=== PATIENT | male | born 1935 | race Caucasian/White ===

== ENCOUNTER 2017-11-20 01:06 | Inpatient (IN) | payer MEDICARE ==
[2017-11-20 02:03] LABS: #Eosinphils 0.1 thou/uL (0.0-0.7); #Lymphocytes 0.9 thou/uL (1.20-3.40); #Monocytes 0.5 thou/uL (0.11-0.59); #Neutrophils 7.5 thou/uL (1.40-6.50); %Basophils 0.3 % (0.0-1.0); %Eosinophils 1.2 % (0.0-10.0); %Lymphocytes 10.2 % (21.0-51.0); %Monocytes 5.2 % (0.0-10.0); %Neutrophils 83.2 % (42.0-75.0); Hemoglobin 12.1 g/dL (14.0-18.0); Mean Corpuscular HGB CONC 35.1 g/dL (32.0-36.0); Mean Corpuscular Hemoglobin 33.7 pg (27.0-31.0); Mean Corpuscular Volume 95.9 fL (78.0-98.0); Mean Platelet Volume 8.2 fL (7.4-10.4); Platelet Count 163 thou/uL (130-400); RBC Distribution Width 12.3 % (11.5-14.5); Red Blood Cell (RBC) Count 3.58 mill/uL (4.70-6.10)
[2017-11-20 02:21] LABS: INR-International Normal Ratio 1.3; PTT 37.4 SEC (22.9-36.1); Prothrombin Time 15.8 SEC (12.0-14.7)
[2017-11-20 02:24] LABS: Anion Gap 13 mmol/L (10-20); BUN (Urea Nitrogen) 35 mg/dL (8.4-25.7); CK (CPK) 139 U/L (30-200); Calc. Creatinine Clearance 0 mL/min (70-130); Calcium 9.4 mg/dL (7.8-10.44); Carbon Dioxide 22 mmol/L (23-31); Chloride 109 mmol/L (98-107); Estimated GFR-MDRD 46; Glucose 148 mg/dL (83-110); Potassium 4.7 mmol/L (3.5-5.1); Sodium 139 mmol/L (136-145)
[2017-11-20 02:28] LABS: Troponin I 0.043 ng/mL (< 0.028)
[2017-11-20] MEDS ORDERED: Acetaminophen 325 MG TAB PO PRN (07:18)
[2017-11-20] MEDS ORDERED: hydrALAZINE 20 MG/ML VIAL SLOW IVP PRN (07:18)
[2017-11-20] MEDS ORDERED: Bisacodyl 5 MG TAB PO PRN (07:18)
[2017-11-20] MEDS ORDERED: Dextrose 5% in Water 1,000 ML IV PRN (07:22)
[2017-11-20] MEDS ORDERED: HumaLOG 300 UNITS/3 ML VIAL SC PRN (07:22)
[2017-11-20] MEDS ORDERED: Dextrose 50% Abboject 50 ML SYRINGE SLOW IVP PRN (07:22)
[2017-11-20] MEDS ORDERED: metFORMIN 500 MG TAB PO SCH (08:30)
[2017-11-20] MEDS ORDERED: Insulin Glargine 30 UNITS in Pre-Filled Syringe 1 EACH SC SCH (08:30)
[2017-11-20] MEDS ORDERED: Amlodipine 10 MG TAB PO SCH (08:30)
[2017-11-20] MEDS ORDERED: Lisinopril 20 MG TAB PO SCH (08:30)
[2017-11-20] MEDS ORDERED: Atorvastatin Calcium 10 MG TAB PO SCH (08:30)
[2017-11-20] MEDS ORDERED: Apixaban 5 MG TAB PO SCH (08:30)
[2017-11-20] MEDS ORDERED: Magnesium Citrate 300 ML BOT PO ONE (09:30)
--- NOTE | 2017-11-20 11:04 | HP ---
PRIMARY CARE PROVIDER: Juan Luis Gonzalez M.D. CHIEF COMPLAINT: Slurred speech. HISTORY OF PRESENT ILLNESS: Mr. Palomares is a pleasant 81-year-old gentleman who was seen at [facility] on 11/20/2017 following transfer from [place]. He reportedly went to bed around 2100 hours yesterday. He woke up at 2230 hours yesterday. He tried talking to his . His found that his speech was slurred. She also reports that she could n ot understand what he was saying. Currently, Mr. Palomares denies any chest pain, shortness of breath, fevers or chills. He denies any we akness in his body. He also reportedly had drooling when he had slurred speech. REVIEW OF SYSTEMS: All other systems reviewed and found to be negative. PAST MEDICAL HISTORY: Coronary artery disease status post coronary artery bypass graft, diabetes melquiades litus type 2 insulin-dependent, hypertension, paroxysmal atrial fibrillation, status post MAZE proced ure, diabetic neuropathy, severe aortic valve stenosis, status post TAVR. PAST SURGICAL HISTORY: Coronary artery bypass graft, cholecystectomy, tonsillectomy, adenoidectomy, skin graft of diabetic foot ulcer, transcatheter aortic valve replacement, MAZE procedure. SOCIAL HISTORY: The patient denies any tobacco use, alcohol use or recreational drug use. FAMILY HISTORY: Father with bladder cancer, mother with metastatic colon cancer. CODE STATUS: I discussed his code status. He is FULL CODE. ALLERGIES: CEFUROXIME, CLARITHROMYCIN, LEVAQUIN, and SULFA. CURRENT MEDICATIONS: Coenzyme Q10 1000 mg daily, Levemir 30 units in the morning and 10 units in the evening, Lipitor 10 mg daily, metformin 500 mg 2 times a day, aspirin 81 mg daily, lisinopril 40 mg daily, amlodipine 10 mg daily and Eliquis 5 mg 2 times a day. PHYSICAL EXAMINATION: GENERAL: On examination, Mr. Palomares is awake and alert, not in acute distress. VITAL SIGNS: Blood pressure is 188/67, pulse 60, respiratory rate 20, and oxygen saturation 94% on 2 liters of oxygen. He is afebrile. EYES: No scleral icterus. No conjunctival pallor. ENT: Moist mucosal membranes, no oropharyngeal erythema or exudates. NECK: Supple, nontender, normal range of movement, trachea is midline. RESPIRATORY: Accessory muscles of breathing are not active. Chest wall movements are symmetric bila terally. LUNGS: Clear to auscultation without wheeze, rhonchi or crepitations. CARDIOVASCULAR: S1 and S2 are heard, irregular. Peripheral pulses palpable. No pericardial rub, no carotid bruit. ABDOMEN: Soft and nontender, bowel sounds are heard, no hepatomegaly, no splenomegaly. NEUROLOGIC: He has left-sided facial droop. Tongue deviates to the left. Speech is slightly slurre d. Otherwise, cranial nerves II-XII intact. No focal motor or sensory deficits. Deep tendon reflex es 2+, plantar reflexes downgoing bilaterally. MUSCULOSKELETAL: Power is 5/5 in all 4 extremities. He has bilateral lower extremity edema. SKIN: He has dry skin, bilateral lower extremity edema. LYMPHATIC: No cervical lymphadenopathy. PSYCHIATRIC: Normal mood, normal affect, patient is oriented to person, place, and time. IMAGING DATA AND LABORATORY DATA: Mr. Palomares labs and investigations were reviewed. I reviewed his electrocardiogram, which shows atrial fibrillation with controlled ventricular response, no ST change s to suggest an acute coronary syndrome. I also reviewed noncontrast CT scan of brain, which does no t show any acute intracranial process. He also had CT angiogram of the head and neck, report is pend ing. He has normal white count, normocytic anemia with hemoglobin 12.1, normal platelet count, INR 1 .3, normal sodium, normal potassium, carbon dioxide slightly decreased at 22, elevated blood urea nit rogen of 35, elevated creatinine of 1.46, last known creatinine 1.59 on 11/19/2017 and indeterminate troponin I of 0.043. ASSESSMENT AND PLAN: Mr. Barber is a pleasant 81-year-old gentleman who was seen at [facility] on 11/20/2017. His problem list includes: 1. Slurred speech: Differential diagnosis includes dysarthria secondary to motor problems versus ce rebrovascular accident. We will check MRI of the brain to rule out cerebrovascular accident. We cheryl l also check 2D echocardiogram to rule out any intracardiac thrombi. 2. Chronic kidney disease: Appears stable. 3. Diabetes mellitus type 2: Start Accu-Cheks, insulin sliding scale. 4. Dyslipidemia: Continue statin. 5. Hypertension: Resume home medications, monitor vital signs and titrate antihypertensives as need ed. 6. Coronary artery disease: Patient denies any chest pain. We will recheck his troponin level. Hi s currently indeterminate troponin level is likely secondary to chronic kidney disease. Many thanks for allowing me to participate in your patient's care. Please feel free to contact me wi th any questions or concerns. LEVEL OF RISK: High. LEVEL OF COMPLEXITY: High.
[2017-11-20 12:59] VITALS: BMI 32.1
[2017-11-20] MEDS ORDERED: Lorazepam 0.5 MG TAB PO SCH (13:00)
[2017-11-20] MEDS ORDERED: Furosemide 20 MG TAB PO SCH (13:30)
[2017-11-20] MEDS ORDERED: Aspirin 81 mg Enteric Coated Tablet PO SCH ×2 (13:30)
--- NOTE | 2017-11-20 15:09 | MRI ---
NONCONTRAST BRAIN MRI: Date: 11/20/17 CLINICAL INDICATION: Stroke, new onset weakness with slurred speech. FINDINGS: There is restricted diffusion involving the posterior right frontal lobe, within the right MCA distri bution. No mass effect or midline shift. There is parenchymal atrophy with compensatory dilatation of the ventricular system. No intracranial hemorrhage is seen. Blood artifact from pineal calcification s is present. There is mild chronic microvascular ischemic disease. The skull base flow-voids are lovett ited by the degree of patient motion. [place] intraocular lenses are absent. There is punctate increased signal by DWI parameters at the right occipital region, which could be ar tifactual versus tiny areas of cortical restriction, too small to definitively characterize. 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 No as sociated mass effect or midline shift. No significant evidence for intracranial hemorrhagic susceptib ility. Recommend neurology consultation for further care. POS: TORY
[2017-11-20] MEDS: metFORMIN 500 MG TAB PO SCH (16:56)
[2017-11-20] MEDS: Aspirin 81 mg Enteric Coated Tablet PO SCH (20:18)
[2017-11-20] MEDS: Fish Oil 1,000 MG CAP PO SCH (20:18)
[2017-11-20] MEDS: Apixaban 2.5 MG TAB PO SCH (20:18)
[2017-11-20] MEDS ORDERED: Non-Formulary Item 1 EACH (Levemir Flexpen [Levemir Flexpen] 10 UNIT) SC SCH (21:00)
[2017-11-20] MEDS ORDERED: Non-Formulary Item 1 EACH (Apixaban [Eliquis] 2.5 MG) PO SCH (21:00)
[2017-11-20] MEDS ORDERED: Insulin Glargine 10 UNITS in Pre-Filled Syringe 1 EACH SC SCH (21:00)
--- NOTE | 2017-11-20 21:24 | CON ---
DATE OF CONSULTATION: 11/20/2017 CONSULTING PHYSICIAN: Hospitalist. IMPRESSION: Small area of ischemia in the right parietal lobe despite maximum medical therapy. PLAN: 1. Carotid ultrasound. 2. Continue current medications. Mr. Palomares is an 81-year-old gentleman with a past history of cardiac valvular disease, atrial fibril lation, hyperlipidemia, hypertension who presented with complaints of some slurred speech and left fa cial drooping. He was noted by his to have these changes just prior to admission. Initial work up did not show any ischemic changes. Laboratory work was all unremarkable. MRI of the brain reveals an acute area of ischemic injury in t he right parietal region. His symptoms have improved. PAST MEDICAL HISTORY: CAD, diabetes, hypertension, aortic stenosis, atrial fibrillation. SOCIAL HISTORY: No tobacco or alcohol use. FAMILY HISTORY: Noncontributory. ALLERGIES: CEFUROXIME, CLARITHROMYCIN, SULFA, LEVAQUIN. REVIEW OF SYSTEMS: No complaint of headache, nausea, vomiting, vertigo, chest pain, shortness of atif ath. PHYSICAL EXAMINATION: GENERAL: He is a well-nourished elderly man sitting up in bed in no distress. VITAL SIGNS: Stable. He is afebrile. HEENT: Pupils equal and reactive. Conjunctivae clear. Oropharynx clear. NECK: Supple, no lymphadenopathy noted. EXTREMITIES: No cyanosis. NEUROLOGIC: He is alert and oriented. His speech was subtly dysarthric. Cranial nerve exam showed some subtle left nasolabial fold flattening. Motor exam showed equal alumni relations coordinator strength. There is some d istal sensory loss in the feet consistent with peripheral neuropathy, can walk with some minimal assi stance. No tremor dysmetrias present. No abnormal movements were seen. CTA of the carotids was unremarkable. SUMMARY: This is an elderly man on maximum medical therapy with aspirin and Eliquis, who suffered a small stroke. He seems to be doing well at this point and can likely be discharged home shortly.
[2017-11-21 05:02] LABS: #Eosinphils 0.2 thou/uL (0.0-0.7); #Monocytes 0.6 thou/uL (0.11-0.59); #Neutrophils 5.3 thou/uL (1.40-6.50); %Basophils 0.5 % (0.0-1.0); %Eosinophils 2.9 % (0.0-10.0); %Lymphocytes 13.7 % (21.0-51.0); %Monocytes 8.7 % (0.0-10.0); %Neutrophils 74.2 % (42.0-75.0); Hemoglobin 10.3 g/dL (14.0-18.0); Mean Corpuscular Hemoglobin 32.7 pg (27.0-31.0); Mean Corpuscular Volume 96.1 fL (78.0-98.0); Mean Platelet Volume 8.1 fL (7.4-10.4); Platelet Count 165 thou/uL (130-400); RBC Distribution Width 12.1 % (11.5-14.5); Red Blood Cell (RBC) Count 3.16 mill/uL (4.70-6.10); White Blood Cell (WBC) Count 7.1 thou/uL (4.8-10.8)
[2017-11-21 05:03] LABS: Anion Gap 11 mmol/L (10-20); BUN (Urea Nitrogen) 26 mg/dL (8.4-25.7); Calc. Creatinine Clearance 70 mL/min (70-130); Calcium 8.9 mg/dL (7.8-10.44); Carbon Dioxide 23 mmol/L (23-31); Cardiac Risk 3.6 (Less than 4.5); Chloride 110 mmol/L (98-107); Cholesterol 104 mg/dl (< 200 Desired); Estimated GFR-MDRD 52; Glucose 118 mg/dL (83-110); HDL Cholesterol 29 mg/dL (>60 Neg Risk); LDL Cholesterol, Calculated 60 mg/dL; Potassium 4.7 mmol/L (3.5-5.1); Sodium 139 mmol/L (136-145); Triglycerides 77 mg/dL (Less than 150)
[2017-11-21] MEDS ORDERED: MILK THISTLE PO SCH (09:00)
[2017-11-21] MEDS ORDERED: Non-Formulary Item 1 EACH (Levemir Flexpen [Levemir Flexpen] 30 UNIT) SC SCH (09:00)
[2017-11-21] MEDS ORDERED: CHOLECALCIFEROL PO SCH (09:00)
[2017-11-21] MEDS ORDERED: UBIDECARENONE PO SCH (09:00)
[2017-11-21] MEDS ORDERED: Aspirin 81 mg Enteric Coated Tablet PO SCH (09:00)
[2017-11-21] MEDS ORDERED: [UNRECOGNIZED DRUG - MIXTURE] PO SCH (09:00)
[2017-11-21] MEDS ORDERED: MAGNESIUM PO SCH (09:00)
[2017-11-21] MEDS ORDERED: COENZYME Q10 PO SCH (09:00)
[2017-11-21] MEDS ORDERED: Non-Formulary Item 1 EACH (Lisinopril [Lisinopril] 40 MG) PO SCH (09:00)
[2017-11-21] MEDS ORDERED: Non-Formulary Item 1 EACH (Cyanocobalamin (Vitamin B-12) [Vitamin B-12] 500 MCG) PO SCH (09:00)
[2017-11-21] MEDS: Lisinopril 20 MG TAB PO SCH (09:41)
[2017-11-21] MEDS: Amlodipine 10 MG TAB PO SCH (09:42)
[2017-11-21] MEDS: metFORMIN 500 MG TAB PO SCH ×2 (09:43→16:01)
[2017-11-21] MEDS: Atorvastatin Calcium 20 MG TAB PO SCH (09:43)
[2017-11-21] MEDS: Cyanocobalamin (Vitamin B-12) 1,000 MCG TAB PO SCH (09:44)
[2017-11-21] MEDS: Fish Oil 1,000 MG CAP PO SCH ×2 (09:45→20:41)
[2017-11-21] MEDS: Magnesium Oxide 400 MG TAB PO SCH (09:46)
[2017-11-21] MEDS: Multivitamin W/ Minerals 1 TAB PO SCH (09:46)
[2017-11-21] MEDS: Insulin Glargine 30 UNITS in Pre-Filled Syringe 1 EACH SC SCH (09:47)
[2017-11-21] MEDS: Apixaban 2.5 MG TAB PO SCH (09:48)
--- NOTE | 2017-11-21 14:03 | CON ---
DATE OF CONSULTATION: 11/21/2017 REASON FOR CONSULTATION: Stroke, bradycardia. HISTORY OF PRESENT ILLNESS: Mr. Karlo Palomares is a very pleasant 81-year-old man. The patient has a hi story of transcutaneous aortic valve replacement and chronic atrial fibrillation. He was recently se en in the office doing well. He did have some asymptomatic bradycardia. The patient was admitted to the hospital yesterday with slurred speech. The patient did not have numbness or weakness, just the slurred speech. He did not have chest pain, pressure, heaviness or squeezing. He was admitted to the hospital and ev aluated as will be outlined below. REVIEW OF SYSTEMS: CONSTITUTIONAL: No significant weight gain or loss. VISION: No changes. HEARING: No changes. PULMONARY: No cough or wheezing. GASTROINTESTINAL: No nausea, vomiting, diarrhea. SKIN: No rashes. PAST MEDICAL HISTORY: 1. Previous transcutaneous aortic valve replacement. 2. Previous bypass surgery. SOCIAL HISTORY: No alcohol or tobacco. FAMILY HISTORY: Father with bladder cancer. CODE STATUS: Full. ALLERGIES: LEVAQUIN and SULFA. MEDICATIONS PRIOR TO ADMISSION: 1. Eliquis 5 mg twice a day. 2. Metformin 500 mg twice daily. 3. Aspirin 81 mg daily. 4. Levemir insulin. PHYSICAL EXAMINATION: GENERAL: This is a pleasant elderly gentleman in no distress. VITAL SIGNS: Blood pressure is 168/65, pulse is in the 40s. LUNGS: Clear. CARDIAC: Irregularly irregular. There is a 2/6 systolic murmur, crescendo decrescendo, loudest at t he left upper sternal border. No diastolic murmur, no S3. ABDOMEN: Soft, nontender. EXTREMITIES: No clubbing or cyanosis. There is moderate edema. SKIN: Warm and dry. PSYCHIATRIC: Mood and affect normal. NEUROLOGIC: He has slurred speech. PERTINENT LABORATORY AND X-RAY FINDINGS: BNP 689, creatinine is 1.32. CT angiography; right internal carotid artery, no significant findings. The left internal carotid ar jae, no significant findings. Brain MRI revealed right middle cerebral artery territory infarct. ASSESSMENT: 1. Chronic atrial fibrillation. 2. Previous transcutaneous aortic valve replacement. 3. Bradycardia. Heart rates in the 40s, he is having multiple 3 second pauses 3.45 second pauses, a lthough most be some when he sleeps. PLAN: Electrophysiologic consultation. Would need to interrupt anticoagulation at least briefly for pacemaker insertion. We will consult Dr. Mejia.
--- NOTE | 2017-11-21 14:16 | PDOC.PN ---
- Subjective Encounter Start Date: 11/21/17 Encounter Start Time: 07:00 Pt seen for followup re: ischemic stroke. Denies chest pain, shortness of breath, fevers or chills. - Objective MAR Reviewed: Yes Vital Signs & Weight: Vital Signs (12 hours) Temp Pulse Pulse Pulse Resp BP BP 11/21/17 11:00 97.8 F 60 16 11/21/17 09:56 59 L 11/21/17 09:51 99.2 F 59 L 12 11/21/17 09:42 59 L 11/21/17 09:41 194/80 H 11/21/17 07:50 42 L 59 L 161/64 H 11/21/17 07:20 99.2 F 46 L 12 11/21/17 04:00 97.9 F 53 L 16 BP BP Pulse Ox 11/21/17 11:00 168/65 H 97 11/21/17 09:56 190/80 H 11/21/17 09:51 95 11/21/17 09:42 11/21/17 09:41 11/21/17 07:50 194/80 H 11/21/17 07:20 164/73 H 95 11/21/17 04:00 143/72 H 95 Weight Weight 257 lb I&O: 11/20/17 11/21/17 11/22/17 06:59 06:59 06:59 Intake Total 800 Output Total 145 Balance 655 Result Diagrams: 11/21/17 04:27 11/21/17 04:27 Additional Labs: Accuchecks 11/21/17 11/21/17 11/21/17 05:50 02:50 02:14 POC Glucose 114 H 95 63 L 11/20/17 11/20/17 11/20/17 21:06 17:00 14:51 POC Glucose 106 121 H 138 H EKG Reviewed by me: Yes (Tele: hardeep bruce, pauses) Phys Exam - Physical Examination Obese HEENT: moist MMs, sclera anicteric, oral pharynx no lesions, 2+ tonsils Neck: no nodes, no JVD, supple, full ROM Respiratory: no wheezing, no rales, no rhonchi, clear to auscultation bilateral Cardiovascular: no rub, irregular S1, S2 Gastrointestinal: soft, non-tender, no distention, positive bowel sounds Musculoskeletal: edema present Neurological: moves all 4 limbs Psychiatric: normal affect, A&O x 3 Dx/Plan (1) Ischemic stroke Code(s): I63.9 - CEREBRAL INFARCTION, UNSPECIFIED Status: Acute Comment: continue aspirin and statin (2) Bradycardia Code(s): R00.1 - BRADYCARDIA, UNSPECIFIED Status: Acute Comment: await cardiology input (3) CKD (chronic kidney disease) Code(s): N18.9 - CHRONIC KIDNEY DISEASE, UNSPECIFIED Status: Chronic Qualifiers: Chronic kidney disease stage: stage 3 (moderate) Qualified Code(s): N18.3 - Chronic kidney disease, stage 3 (moderate) Comment: stable (4) DM2 (diabetes mellitus, type 2) Status: Chronic Comment: pt had episode of hypoglycemia, decrease nighttime dose of lantus to 5 units (5) Dyslipidemia Code(s): E78.5 - HYPERLIPIDEMIA, UNSPECIFIED Status: Chronic Comment: continue statin (6) Chronic a-fib Code(s): I48.2 - CHRONIC ATRIAL FIBRILLATION Status: Chronic Comment: on anticoagulation - Plan * . Review of Systems - Review of Systems Constitutional: negative: fever, chills, sweats, weakness, malaise Respiratory: negative: Cough, Shortness of Breath, SOB with Excertion, Pleuritic Pain, Wheezing Cardiovascular: negative: chest pain, palpitations, orthopnea, paroxysmal nocturnal dyspnea, edema, light headedness Gastrointestinal: negative: Nausea, Vomiting, Abdominal Pain, Diarrhea, Constipation, Melena, Hematochezia Genitourinary: negative: Dysuria, Frequency, Incontinence, Hematuria, Retention Skin: negative: Rash, Lesions, Xavier, Bruising - Medications/Allergies Allergies/Adverse Reactions: Allergies Allergy/AdvReac Type Severity Reaction Status Date / Time cefuroxime AdvReac Stomach Verified 11/20/17 12:26 Ache clarithromycin AdvReac Stomach Verified 11/20/17 12:26 Ache sulfamethoxazole AdvReac Stomach Verified 11/20/17 12:26 [From Bactrim] Ache trimethoprim [From Bactrim] AdvReac Stomach Verified 11/20/17 12:26 Ache Medications: Current Medications Acetaminophen (Tylenol) 650 mg PO Q4H PRN PRN Reason: Headache/Fever or Pain Amlodipine Besylate (Norvasc) 10 mg PO DAILY [facility] Last Admin: 11/21/17 09:42 Dose: 10 mg Aspirin (Ecotrin) 81 mg PO HS [facility] Last Admin: 11/20/17 20:18 Dose: 81 mg Atorvastatin Calcium (Lipitor) 20 mg PO DAILY [facility] Last Admin: 11/21/17 09:43 Dose: 20 mg Bisacodyl (Dulcolax) 10 mg PO DAILYPRN PRN PRN Reason: Constipation Cholecalciferol (Vitamin D3) [facility] Admin: 11/21/17 09:45 Dose: 2,000 units Cyanocobalamin (Vitamin B-12) 500 mcg PO QAM [facility] Last Admin: 11/21/17 09:44 Dose: 500 mcg Dextrose/Water (Dextrose 50%) 25 gm SLOW IVP PRN PRN PRN Reason: Hypoglycemia Enoxaparin Sodium (Lovenox) 100 mg SC 09,2099 [facility] Fish Oil (Fish Oil) 1,000 mg PO BID [facility] Last Admin: 11/21/17 09:45 Dose: 1,000 mg Furosemide (Lasix) 20 mg PO ASDIR [facility] Glucagon (Glucagon) 1 mg IM PRN PRN PRN Reason: Hypoglycemia Hydralazine HCl (Apresoline) 10 mg SLOW IVP Q4H PRN PRN Reason: BP > 220/110 Dextrose/Water (D5w) 1,000 mls @ 0 mls/hr IV .Q0M PRN; As Directed PRN Reason: Hypoglycemia Insulin Glargine 30 units/ (Miscellaneous Medication) 0.3 mls @ 0 mls/hr SC [facility] Last Admin: 11/21/17 09:47 Dose: 0.3 mls Insulin Glargine 5 units/ (Miscellaneous Medication) 0.05 mls @ 0 mls/hr SC [facility] Insulin Human Lispro (Humalog) 0 units SC .MILD SLIDING SCALE PRN PRN Reason: Mild Correctional Scale Last Admin: 11/21/17 11:46 Dose: 2 unit Iron/Minerals/Multivitamins (Theragran M) 1 tab PO DAILY [facility] Last Admin: 11/21/17 09:46 Dose: 1 tab Lisinopril (Zestril) 40 mg PO DAILY [facility] Last Admin: 11/21/17 09:41 Dose: 40 mg Lorazepam (Ativan) 0.5 mg PO WILLCALL [facility] Magnesium Oxide (Magnesium Oxide) 400 mg PO DAILY [facility] Last Admin: 11/21/17 09:46 Dose: 400 mg Metformin HCl (Glucophage) 500 mg PO BID-AC [facility] Last Admin: 11/21/17 09:43 Dose: 500 mg Sodium Chloride (Flush - Normal Saline) 10 ml IVF Q12HR [facility] Last Admin: 11/21/17 09:47 Dose: 10 ml Sodium Chloride (Flush - Normal Saline) 10 ml IVF PRN PRN PRN Reason: Saline Flush
[2017-11-21] MEDS: Aspirin 81 mg Enteric Coated Tablet PO SCH (20:41)
[2017-11-21] MEDS: Enoxaparin Sodium 100 MG/ML SYRINGE SC SCH (20:41)
[2017-11-21] MEDS: Insulin Glargine 5 UNITS in Pre-Filled Syringe 1 EACH SC SCH (20:42)
[2017-11-22 05:59] LABS: #Eosinphils 0.4 thou/uL (0.0-0.7); #Lymphocytes 1.3 thou/uL (1.20-3.40); #Monocytes 0.6 thou/uL (0.11-0.59); #Neutrophils 3.5 thou/uL (1.40-6.50); %Basophils 0.7 % (0.0-1.0); %Eosinophils 6.5 % (0.0-10.0); %Lymphocytes 21.8 % (21.0-51.0); %Monocytes 10.7 % (0.0-10.0); %Neutrophils 60.3 % (42.0-75.0); Hemoglobin 11.1 g/dL (14.0-18.0); Mean Corpuscular HGB CONC 33.7 g/dL (32.0-36.0); Mean Corpuscular Hemoglobin 32.6 pg (27.0-31.0); Mean Corpuscular Volume 96.9 fL (78.0-98.0); Mean Platelet Volume 8.7 fL (7.4-10.4); Platelet Count 162 thou/uL (130-400); RBC Distribution Width 12.1 % (11.5-14.5); White Blood Cell (WBC) Count 5.7 thou/uL (4.8-10.8)
[2017-11-22 06:30] LABS: Anion Gap 9 mmol/L (10-20); BUN (Urea Nitrogen) 23 mg/dL (8.4-25.7); Calc. Creatinine Clearance 79 mL/min (70-130); Calcium 8.9 mg/dL (7.8-10.44); Carbon Dioxide 24 mmol/L (23-31); Chloride 112 mmol/L (98-107); Estimated GFR-MDRD 60; Glucose 91 mg/dL (83-110); Potassium 4.7 mmol/L (3.5-5.1); Sodium 140 mmol/L (136-145)
[2017-11-22] MEDS: Amlodipine 10 MG TAB PO SCH (08:57)
[2017-11-22] MEDS: Multivitamin W/ Minerals 1 TAB PO SCH (08:57)
[2017-11-22] MEDS: metFORMIN 500 MG TAB PO SCH ×2 (08:57→17:42)
[2017-11-22] MEDS: Lisinopril 20 MG TAB PO SCH (08:58)
[2017-11-22] MEDS: Fish Oil 1,000 MG CAP PO SCH ×2 (08:58→20:45)
[2017-11-22] MEDS: Magnesium Oxide 400 MG TAB PO SCH (08:58)
[2017-11-22] MEDS: Atorvastatin Calcium 20 MG TAB PO SCH (08:58)
[2017-11-22] MEDS: Enoxaparin Sodium 100 MG/ML SYRINGE SC SCH ×2 (08:59→20:45)
[2017-11-22] MEDS: Cyanocobalamin (Vitamin B-12) 1,000 MCG TAB PO SCH (08:59)
[2017-11-22] MEDS: Insulin Glargine 30 UNITS in Pre-Filled Syringe 1 EACH SC SCH (08:59)
--- NOTE | 2017-11-22 12:14 | PDOC.PN ---
- Subjective Encounter Start Date: 11/22/17 Encounter Start Time: 07:00 Pt seen for followup re: ischemic stroke. Denies chest pain, shortness fo breath, fevers or chills. - Objective MAR Reviewed: Yes Vital Signs & Weight: Vital Signs (12 hours) Temp Pulse Pulse Pulse Resp BP BP 11/22/17 09:36 66 59 L 159/65 H 11/22/17 08:58 151/67 H 11/22/17 08:57 64 151/67 H 11/22/17 08:00 97.7 F 60 24 H 11/22/17 04:00 98.1 F 64 18 BP BP Pulse Ox 11/22/17 09:36 183/91 H 11/22/17 08:58 11/22/17 08:57 11/22/17 08:00 99 11/22/17 04:00 154/66 H 98 Weight Weight 256 lb 9.6 oz I&O: 11/21/17 11/22/17 11/23/17 06:59 06:59 06:59 Intake Total 800 1870 Output Total 145 800 Balance 655 1070 Result Diagrams: 11/22/17 05:18 11/22/17 05:18 Additional Labs: Accuchecks 11/22/17 11/21/17 11/21/17 05:55 20:42 16:42 POC Glucose 95 143 H 97 11/21/17 11/20/17 11:02 20:22 POC Glucose 170 H 110 EKG Reviewed by me: Yes (Tele: hardeep bruce) Phys Exam - Physical Examination Constitutional: NAD HEENT: moist MMs, sclera anicteric, oral pharynx no lesions, 2+ tonsils Neck: no nodes, no JVD, supple, full ROM Respiratory: no wheezing, no rales, no rhonchi, clear to auscultation bilateral Cardiovascular: no rub, irregular S1, S2 Gastrointestinal: soft, non-tender, no distention, positive bowel sounds Musculoskeletal: edema present Neurological: moves all 4 limbs Psychiatric: normal affect Dx/Plan (1) Ischemic stroke Code(s): I63.9 - CEREBRAL INFARCTION, UNSPECIFIED Status: Acute Comment: on aspirin and statin, continue (2) Bradycardia Code(s): R00.1 - BRADYCARDIA, UNSPECIFIED Status: Acute Comment: likely pacemaker placement. Eliquis is on hold, continue lovenox. (3) CKD (chronic kidney disease) Code(s): N18.9 - CHRONIC KIDNEY DISEASE, UNSPECIFIED Status: Chronic Qualifiers: Chronic kidney disease stage: stage 3 (moderate) Qualified Code(s): N18.3 - Chronic kidney disease, stage 3 (moderate) Comment: stable (4) DM2 (diabetes mellitus, type 2) Status: Chronic Comment: Decrease nighttime dose of lantus to 5 units yesterday, no overnight hypoglycemia (5) Dyslipidemia Code(s): E78.5 - HYPERLIPIDEMIA, UNSPECIFIED Status: Chronic Comment: on statin (6) Chronic a-fib Code(s): I48.2 - CHRONIC ATRIAL FIBRILLATION Status: Chronic Comment: on Lovenox - Plan * . Review of Systems - Review of Systems Constitutional: negative: fever, chills, sweats, weakness, malaise Respiratory: negative: Cough, Shortness of Breath, SOB with Excertion, Pleuritic Pain, Wheezing Cardiovascular: negative: chest pain, palpitations, orthopnea, paroxysmal nocturnal dyspnea, edema, light headedness Musculoskeletal: negative: Neck Pain, Shoulder Pain, Arm Pain, Back Pain, Hand Pain, Leg Pain, Foot Pain Skin: negative: Rash, Lesions, Xavier, Bruising - Medications/Allergies Allergies/Adverse Reactions: Allergies Allergy/AdvReac Type Severity Reaction Status Date / Time cefuroxime AdvReac Stomach Verified 11/20/17 12:26 Ache clarithromycin AdvReac Stomach Verified 11/20/17 12:26 Ache sulfamethoxazole AdvReac Stomach Verified 11/20/17 12:26 [From Bactrim] Ache trimethoprim [From Bactrim] AdvReac Stomach Verified 11/20/17 12:26 Ache Medications: Current Medications Acetaminophen (Tylenol) 650 mg PO Q4H PRN PRN Reason: Headache/Fever or Pain Amlodipine Besylate (Norvasc) 10 mg PO DAILY [facility] Last Admin: 11/22/17 08:57 Dose: 10 mg Aspirin (Ecotrin) 81 mg PO HS [facility] Last Admin: 11/21/17 20:41 Dose: 81 mg Atorvastatin Calcium (Lipitor) 20 mg PO DAILY [facility] Last Admin: 11/22/17 08:58 Dose: 20 mg Bisacodyl (Dulcolax) 10 mg PO DAILYPRN PRN PRN Reason: Constipation Cholecalciferol (Vitamin D3) 2,000 units PO QAM [facility] Last Admin: 11/22/17 08:57 Dose: 2,000 units Cyanocobalamin (Vitamin B-12) 500 mcg PO QAM [facility] Last Admin: 11/22/17 08:59 Dose: 500 mcg Dextrose/Water (Dextrose 50%) 25 gm SLOW IVP PRN PRN PRN Reason: Hypoglycemia Enoxaparin Sodium (Lovenox) 100 mg SC 0900,2100 [facility] Last Admin: 11/22/17 08:59 Dose: 100 mg Fish Oil (Fish Oil) 1,000 mg PO BID [facility] Last Admin: 11/22/17 08:58 Dose: 1,000 mg Furosemide (Lasix) 20 mg PO ASDIR [facility] Glucagon (Glucagon) 1 mg IM PRN PRN PRN Reason: Hypoglycemia Hydralazine HCl (Apresoline) 10 mg SLOW IVP Q4H PRN PRN Reason: BP > 220/110 Dextrose/Water (D5w) 1,000 mls @ 0 mls/hr IV .Q0M PRN; As Directed PRN Reason: Hypoglycemia Insulin Glargine 30 units/ (Miscellaneous Medication) 0.3 mls @ 0 mls/hr SC [facility] Last Admin: 11/22/17 08:59 Dose: 0.3 mls Insulin Glargine 5 units/ (Miscellaneous Medication) 0.05 mls @ 0 mls/hr SC [facility] Last Admin: 11/21/17 20:42 Dose: 0.05 mls Insulin Human Lispro (Humalog) 0 units SC .MILD SLIDING SCALE PRN PRN Reason: Mild Correctional Scale Last Admin: 11/21/17 11:46 Dose: 2 unit Iron/Minerals/Multivitamins (Theragran M) 1 tab PO DAILY [facility] Last Admin: 11/22/17 08:57 Dose: 1 tab Lisinopril (Zestril) 40 mg PO DAILY [facility] Last Admin: 11/22/17 08:58 Dose: 40 mg Lorazepam (Ativan) 0.5 mg PO WILLCALL [facility] Magnesium Oxide (Magnesium Oxide) 400 mg PO DAILY [facility] Last Admin: 11/22/17 08:58 Dose: 400 mg Metformin HCl (Glucophage) 500 mg PO BID-AC [facility] Last Admin: 11/22/17 08:57 Dose: 500 mg Sodium Chloride (Flush - Normal Saline) 10 ml IVF Q12HR [facility] Last Admin: 11/22/17 09:00 Dose: 10 ml Sodium Chloride (Flush - Normal Saline) 10 ml IVF PRN PRN PRN Reason: Saline Flush
--- NOTE | 2017-11-22 13:29 | CON ---
ELECTROPHYSIOLOGY CONSULTATION REPORT DATE OF SERVICE: 11/21/2017 REFERRING PHYSICIAN: Dr. Kong. I am seeing Mr. Palomares at our [facility] as an electrophysiology lending consultant regarding his bradycardia. His problems are: 1. Subacute ischemic stroke as witnessed by MRI in the right MCA territory associated dysarthria and facial droop. 2. Chronic atrial fibrillation with slow ventricular response to a prior history of fatigue and tiredness with a slow heart beating. 3. Chronic anticoagulation with Eliquis. 4A. History of coronary artery disease with remote coronary artery bypass grafting surgery. 4B. A 2D echo from 11/2017, demonstrates LVEF 55-60%, severe left atrial enlargement, severe annular calcification, [id number] mitral regurgitation , bioprosthetic aortic valve in good position. 5. Valvular heart disease, status post aortic valve replacement surgery with a bioprosthetic valve. 6. Chronic left bundle branch block pattern. 7. Coronary artery risk factors including type 2 diabetes, hypertension. 8. History of maze procedure in the past. ALLERGIES: CEFUROXIME, CLARITHROMYCIN, SULFAMETHOXAZOLE, TRIMETHOPRIM. MEDICATIONS AT HOME: Included magnesium, atorvastatin, Levemir, cholecalciferol , ubidecarenone, omega 3 fatty acid, multivitamins, , metformin, apixaban 2.5 twice a day, amlodipine 10 mg daily, torsemide 10 mg daily, lisinopril 40 mg daily, aspirin 81 daily, cyanocobalamin 500 mcg daily. SUBJECTIVE: Mr. Palomares has experienced a sudden slurring of his speech and was found to have a right MCA territory ischemic stroke. He was evaluated by Neurology and recommendation was to continue current regimen. While on monitor though he developed marked bradycardia overnight. His heart rate has improved to the 50s and 60s while awake; but at night, he had up to 3.1-second pauses. At this point, he is not symptomatic bradycardia while awake and not passing out, but at home, he did notice some fatigue and tiredness with heart rates are hitting in the 40s. OBJECTIVE DATA: VITAL SIGNS: Blood pressure 150/71, heart rate 53, respirations 16, temperature 97.7 degrees Fahrenheit. GENERAL: He is alert and oriented man in no apparent distress. NECK: Supple. Jugular veins are distended. CHEST: Coarse without crackles. CARDIAC: Heart sounds are irregularly irregular. S1, S2, variable. No murmur and 1/6 systolic ejection murmur is heard. Midsternal scar is well healed. ABDOMEN: Benign. Bowel sounds positive. EXTREMITIES: Lower extremities without edema, clubbing or cyanosis. Pulses are adequate. NEUROLOGIC: Patient nonfocal. MUSCULOSKELETAL: Without joint swelling or deformities. SKIN: Without rash. DATABASE: EKGs reviewed revealing atrial fibrillation with slow response and left bundle branch block pattern is noted. LABORATORY DATA: White count 7.1, hemoglobin 10.3, platelet count is 165. INR 1.3. Sodium 139, potassium 4.7, BUN is 26, creatinine is 1.32. SOCIAL HISTORY: Patient denies smoking, EtOH, or drug use. Lives with his . FAMILY HISTORY: Father having bladder cancer, mother with metastatic colon cancer. ASSESSMENT AND PLAN: Mr. Palomares is a pleasant 81-year-old man with prior history of aortic valve replacement with a bioprosthetic valve as his bypass surgery in 2009. He has chronic atrial fibrillation despite of a maze procedure performed at that time. He has though been on chronic Eliquis therapy and despite he is presenting with the MCA territory ischemic stroke. While on telemetry, he is noted to have marked bradycardia overnight. He did have a history of some symptomatic slower beating in the past while following with Dr. Kong. I discussed the pros and cons of consideration for pacing at this time with him. Not sure of any acute process of his stroke, his risks or complications higher with any kind of procedure. Also, the bradycardia could be worsened by the hypervagotonic effect of his of stroke as well. On the other hand, if the rates continue worsened, consideration for pacing could be made. single chamber pacemaker at this point, likely would suffice. In the meantime, atropine and dopamine could be used to improve his heart function if symptomatic bradycardia seen. The patient in our require continued anticoagulation in the future. I would consider 5 mg twice a day Eliquis dose. At this point, he is on Lovenox therapy. History of aortic valve replacement seems to be with adequate function, also with normal LVEF, no signs of acute ischemia noted his coronary artery disease history. Thank you for the consult. We will follow with you. We will check on 2017 morning to need for intervention. BARB
[2017-11-22] MEDS: cycloSPORINE 0.05% Ophthalmic Droperette EA EYE PRN (20:45)
[2017-11-22] MEDS: Aspirin 81 mg Enteric Coated Tablet PO SCH (20:45)
[2017-11-22] MEDS: Insulin Glargine 5 UNITS in Pre-Filled Syringe 1 EACH SC SCH (20:46)
[2017-11-23] MEDS: metFORMIN 500 MG TAB PO SCH ×2 (10:22→17:28)
[2017-11-23] MEDS: Amlodipine 10 MG TAB PO SCH (10:23)
[2017-11-23] MEDS: Atorvastatin Calcium 20 MG TAB PO SCH (10:24)
[2017-11-23] MEDS: Fish Oil 1,000 MG CAP PO SCH ×2 (10:26→20:15)
[2017-11-23] MEDS: Insulin Glargine 30 UNITS in Pre-Filled Syringe 1 EACH SC SCH (10:26)
[2017-11-23] MEDS: Cyanocobalamin (Vitamin B-12) 1,000 MCG TAB PO SCH (10:26)
--- NOTE | 2017-11-23 10:26 | PRG ---
DATE OF SERVICE: 11/23/2017 Mr. Palomares is feeling well this morning. He still has significant bradycardia. PHYSICAL EXAMINATION: VITAL SIGNS: Blood pressure is high 177/72, pulse 54, it is irregular. It was a 46 earlier this mor criss. LUNGS: Clear. CARDIAC: Irregularly irregular. The patient did have a 3.6 second pause this morning. ASSESSMENT: 1. Atrial fibrillation with bradycardia. 2. Fatigue with exertion and 3.6 second pauses and heart rates in the 40s. 3. Recent stroke, probably embolic. PLAN: 1. Pacemaker insertion today. 2. Resume Eliquis tomorrow. 3. The patient's thinks he was taking Eliquis 2.5 mg twice a day. We will call the pharmacy an d make sure that is what the dose is. If that is the case, what we made do is increase Eliquis to 5 mg twice a day and stop aspirin. 4. The patient should be ready to go home tomorrow.
[2017-11-23] MEDS: Lisinopril 20 MG TAB PO SCH (10:27)
[2017-11-23] MEDS: Magnesium Oxide 400 MG TAB PO SCH (10:28)
[2017-11-23] MEDS: Multivitamin W/ Minerals 1 TAB PO SCH (10:28)
[2017-11-23] MEDS ORDERED: Iopamidol 370 76% 50 ML VIAL FS ONE (13:01)
[2017-11-23] MEDS ORDERED: Fentanyl 100 MCG/2 ML VIAL ONE (15:25)
--- NOTE | 2017-11-23 17:02 | PDOC.PN ---
- Subjective Encounter Start Date: 11/23/17 Encounter Start Time: 09:00 Patient seen and examined for Acute CVA. No new complaints. No overnight events. No new focal findings. Speech improving. - Objective MAR Reviewed: Yes Vital Signs & Weight: Vital Signs (12 hours) Temp Pulse Pulse Pulse Pulse Resp BP 11/23/17 16:15 97.6 F 71 14 11/23/17 12:00 98.5 F 55 L 16 11/23/17 10:27 175/117 H 11/23/17 10:23 54 L 175/117 H 11/23/17 08:51 72 67 73 11/23/17 08:30 99 F 54 L 20 11/23/17 08:00 99 F 54 L 20 BP BP BP BP Pulse Ox 11/23/17 16:15 150/69 H 97 11/23/17 12:00 171/74 H 95 11/23/17 10:27 11/23/17 10:23 11/23/17 08:51 175/117 H 172/77 H 211/87 H 11/23/17 08:30 97 11/23/17 08:00 177/72 H 97 Weight Weight 248 lb 3.2 oz I&O: 11/22/17 11/23/17 11/24/17 06:59 06:59 06:59 Intake Total 1870 1815 Output Total 800 300 Balance 1070 1515 Result Diagrams: 11/22/17 05:18 11/22/17 05:18 Additional Labs: Accuchecks 11/23/17 11/23/17 11/23/17 11:09 05:59 01:37 POC Glucose 100 90 68 L 11/22/17 11/22/17 11/22/17 20:43 16:51 11:12 POC Glucose 150 H 115 H 132 H Radiology Reviewed by me: Yes (MRI brain - Acute CVA) EKG Reviewed by me: Yes (Tele Afib) Phys Exam - Physical Examination Constitutional: NAD Respiratory: no wheezing, no rhonchi Cardiovascular: no rub, irregular Gastrointestinal: soft, non-tender, positive bowel sounds Musculoskeletal: no edema Neurological: moves all 4 limbs Dx/Plan (1) Acute CVA (cerebrovascular accident) Code(s): I63.9 - CEREBRAL INFARCTION, UNSPECIFIED Status: Acute Plan: Cont ASA, Eliquis on hold due to Pacemaker (2) Chronic a-fib Code(s): I48.2 - CHRONIC ATRIAL FIBRILLATION Status: Chronic Plan: As above, Cont rate control, Pacemaker later today Comment: with sinus pause >3 sec (3) HTN (hypertension) Code(s): I10 - ESSENTIAL (PRIMARY) HYPERTENSION Status: Chronic Plan: Cont current HTN meds (4) Obesity (BMI 30.0-34.9) Code(s): E66.9 - OBESITY, UNSPECIFIED Status: Chronic (5) DM2 (diabetes mellitus, type 2) Status: Chronic Qualifiers: Chronic kidney disease stage: stage 2 (mild) Plan: Cont sliding scale with Lantus, DC HS Lantus, Add HS sliding scale Comment: on sliding scale and Lantus (6) Other chronic issues Comment: CAD s/p CABG, Dyslipidemia, s/p Bioprosthetic AVR - Plan plan discussed w/ family, PT/OT, DVT proph w/SCDs Review of Systems - Review of Systems Respiratory: negative: Cough, Dry, Shortness of Breath, Hemoptysis, SOB with Excertion, Pleuritic Pain, Sputum, Wheezing Cardiovascular: negative: chest pain, palpitations, orthopnea, paroxysmal nocturnal dyspnea, edema, light headedness, other - Medications/Allergies Allergies/Adverse Reactions: Allergies Allergy/AdvReac Type Severity Reaction Status Date / Time cefuroxime AdvReac Stomach Verified 11/20/17 12:26 Ache clarithromycin AdvReac Stomach Verified 11/20/17 12:26 Ache sulfamethoxazole AdvReac Stomach Verified 11/20/17 12:26 [From Bactrim] Ache trimethoprim [From Bactrim] AdvReac Stomach Verified 11/20/17 12:26 Ache Medications: Current Medications Acetaminophen (Tylenol) 650 mg PO Q4H PRN PRN Reason: Headache/Fever or Pain Amlodipine Besylate (Norvasc) 10 mg PO DAILY [facility] Last Admin: 11/23/17 10:23 Dose: 10 mg Aspirin (Ecotrin) 81 mg PO HS [facility] Last Admin: 11/22/17 20:45 Dose: 81 mg Atorvastatin Calcium (Lipitor) 20 mg PO DAILY [facility] Last Admin: 11/23/17 10:24 Dose: 20 mg Bisacodyl (Dulcolax) 10 mg PO DAILYPRN PRN PRN Reason: Constipation Cholecalciferol (Vitamin D3) 2,000 units PO QAM [facility] Last Admin: 11/23/17 10:25 Dose: 2,000 units Cyanocobalamin (Vitamin B-12) 500 mcg PO QAM [facility] Last Admin: 11/23/17 10:26 Dose: 500 mcg Cyclosporine (Restasis) 0 ml EA EYE Q8H PRN PRN Reason: .DRY EYES Last Admin: 11/22/17 20:45 Dose: 0.4 ml Dextrose/Water (Dextrose 50%) 25 gm SLOW IVP PRN PRN PRN Reason: Hypoglycemia Fish Oil (Fish Oil) 1,000 mg PO BID [facility] Last Admin: 11/23/17 10:26 Dose: 1,000 mg Furosemide (Lasix) 20 mg PO ASDIR [facility] Glucagon (Glucagon) 1 mg IM PRN PRN PRN Reason: Hypoglycemia Hydralazine HCl (Apresoline) 10 mg SLOW IVP Q4H PRN PRN Reason: BP > 220/110 Dextrose/Water (D5w) 1,000 mls @ 0 mls/hr IV .Q0M PRN; As Directed PRN Reason: Hypoglycemia Insulin Glargine 30 units/ (Miscellaneous Medication) 0.3 mls @ 0 mls/hr SC [facility] Last Admin: 11/23/17 10:26 Dose: Not Given Insulin Glargine 5 units/ (Miscellaneous Medication) 0.05 mls @ 0 mls/hr SC [facility] Last Admin: 11/22/17 20:46 Dose: 0.05 mls Insulin Human Lispro (Humalog) 0 units SC .MILD SLIDING SCALE PRN PRN Reason: Mild Correctional Scale Last Admin: 11/21/17 11:46 Dose: 2 unit Iron/Minerals/Multivitamins (Theragran M) 1 tab PO DAILY [facility] Last Admin: 11/23/17 10:28 Dose: 1 tab Lisinopril (Zestril) 40 mg PO DAILY [facility] Last Admin: 11/23/17 10:27 Dose: 40 mg Lorazepam (Ativan) 0.5 mg PO WILLCALL [facility] Magnesium Oxide (Magnesium Oxide) 400 mg PO DAILY [facility] Last Admin: 11/23/17 10:28 Dose: 400 mg Metformin HCl (Glucophage) 500 mg PO BID-AC [facility] Last Admin: 11/23/17 10:22 Dose: Not Given Sodium Chloride (Flush - Normal Saline) 10 ml IVF Q12HR [facility] Last Admin: 11/23/17 10:28 Dose: 10 ml Sodium Chloride (Flush - Normal Saline) 10 ml IVF PRN PRN PRN Reason: Saline Flush
[2017-11-23] MEDS ORDERED: HumaLOG 300 UNITS/3 ML VIAL SC PRN (17:06)
[2017-11-23] MEDS: cycloSPORINE 0.05% Ophthalmic Droperette EA EYE PRN (20:15)
[2017-11-23] MEDS: Aspirin 81 mg Enteric Coated Tablet PO SCH (20:15)
[2017-11-24] MEDS: traMADol HCl 50 MG TAB PO PRN ×2 (00:16→09:34)
--- NOTE | 2017-11-24 08:40 | RAD ---
FRONTAL VIEW CHEST: COMPARISON: 12/12/16. INDICATION: Pacemaker placement, postprocedural evaluation. FINDINGS: There is a single-lead left subclavian approach cardiac pacing device. No postprocedure pneumothorax is visualized. Cardiac silhouette is enlarged. There is prominence of the pulmonary vasculature. Patchy left basilar density is seen. Extensive artifact limits detail. IMPRESSION: 1. Left subclavian cardiac pacing device placed, without a significant, postprocedural pneumothorax. 2. Mild patchy left basilar density. 3. Congestive heart failure. POS: SONJA
--- NOTE | 2017-11-24 09:29 | PRG ---
DATE OF SERVICE: 11/24/2017 Mr. Palomares underwent successful single chamber pacemaker yesterday. He is doing well. He has 100% v entricular pacing currently. No chest pain or pressure. PHYSICAL EXAMINATION: VITAL SIGNS: Blood pressure 170/70, pulse 60. LUNGS: Clear. CARDIAC: Normal S1, S2. ABDOMEN: Soft, nontender. The pacemaker incision site, there is some mild swelling, but no overt bleeding and no obvious hemato ma. ASSESSMENT: 1. Chronic atrial fibrillation. 2. Recent embolic stroke. 3. Previous transcutaneous aortic valve replacement. PLAN: 1. Resume Eliquis 5 mg twice a day starting tomorrow. 2. We will stop aspirin. This looks like it was likely a cardioembolic event. Aspirin and full dos e Eliquis will increase risk of bleeding. 3. Continue lisinopril. 4. We will also start carvedilol low dose to try to help with the blood pressure. 5. The patient will be released home to follow up in the office.
[2017-11-24] MEDS: Lisinopril 20 MG TAB PO SCH (09:34)
[2017-11-24] MEDS: Atorvastatin Calcium 20 MG TAB PO SCH (09:34)
[2017-11-24] MEDS: Magnesium Oxide 400 MG TAB PO SCH (09:35)
[2017-11-24] MEDS: Multivitamin W/ Minerals 1 TAB PO SCH (09:35)
[2017-11-24] MEDS: Cyanocobalamin (Vitamin B-12) 1,000 MCG TAB PO SCH (09:35)
[2017-11-24] MEDS: metFORMIN 500 MG TAB PO SCH (09:35)
[2017-11-24] MEDS: Fish Oil 1,000 MG CAP PO SCH ×2 (09:35→09:48)
[2017-11-24] MEDS: Amlodipine 10 MG TAB PO SCH (09:36)
[2017-11-24] MEDS: Insulin Glargine 30 UNITS in Pre-Filled Syringe 1 EACH SC SCH (09:42)
[2017-11-24] MEDS ORDERED: Clindamycin 150 MG CAP PO SCH (13:45)
--- NOTE | 2017-11-24 15:25 | PRG ---
DATE OF SERVICE: 11/24/2017. SUBJECTIVE: Mr. Palomares is feeling well today. He is resting comfortably in a chair. He underwent a single-chamber pacemaker placement yesterday. He is doing well and 100% RV pacing currently. He do es have some tenderness and pain at the implant site and has been taking p.o. pain medications for th is. Otherwise, he does not have any cardiac concerns or complaints. He denies any heart racing, pal pitations, chest pain, pressure, syncope, near syncope, stroke or stroke-like symptoms. He denies an y bleeding issues at his implant site. PHYSICAL EXAMINATION: VITAL SIGNS: Temperature 98.0 degrees Fahrenheit, pulse 60, oxygen saturation 96% on room air, respi rations 16, blood pressure is 145/66. LUNGS: Clear to auscultation bilaterally. Respirations are even and unlabored. HEART: His heart rate is regular with underlying atrial fibrillation and RV pacing. PMI is nondispl aced. EXTREMITIES: Warm and dry to touch with some mild swelling bilaterally. ABDOMEN: Soft, nontender. He is euvolemic by exam. Pacemaker seated at the left infraclavicular fo ssa with some mild swelling and minimal bruising. There is no discharge, no hematoma present. [place] burk is intact over the incision overall stable site. DATABASE: Chest x-ray from this morning, negative for post-procedural pneumothorax. Mild congestive heart failure. No postoperative complications. Pacemaker interrogation was performed. Lead parame ters are stable with adequate sensing, threshold and impedance. IMPRESSION: 1. Chronic atrial fibrillation with slow ventricular rates and AV block status post single chamber p robert, postop day #1. 2. Subacute stroke. Resume oral anticoagulation with full dose Eliquis. 3. Hypertension. RECOMMENDATIONS: 1. Continue Eliquis 5 mg b.i.d. starting tomorrow morning for stroke prophylaxis. 2. Prescription for clindamycin 300 mg p.o. t.i.d. x1 week was provided for post-implant prophylaxis . 3. Wound check in 7-10 days is requested and to see a clinic, patient and were given informatio n regarding this. Okay for discharge by EP.
[2017-11-24 15:49] VITALS: TEMP 97.4
[2017-11-24 15:51] VITALS: BP 165/72
[2017-11-24] MEDS ORDERED: Carvedilol 3.125 MG TAB PO SCH (17:00)
--- NOTE | 2017-11-25 07:36 | DIS ---
DATE OF ADMISSION: 11/20/2017 DATE OF DISCHARGE: 11/24/2017 DISCHARGE DISPOSITION: Home. FOLLOWUP: 1. Follow up with primary care physician, Dr. Gonzalez in 1 week. 2. Follow up with Cardiology, Dr. Kong and Electrophysiology, Dr. Mejia as well as Neurology, Dr. Keiry srinivasan, in 2 weeks. ALLERGIES: The patient is allergic to BACTRIM and CEPHALOSPORINS. DISCHARGE MEDICATIONS: Eliquis 5 mg b.i.d. to be started tomorrow, carvedilol 3.125 b.i.d., Amlodipi ne 10 mg daily, Lipitor 20 mg daily, Lasix 20 mg as directed, Levemir 30 units in the morning and 10 units at bedtime, lisinopril 40 mg daily, metformin 500 mg twice a day. Other over the counter suppl ements were resumed. BRIEF HOSPITAL COURSE: Patient is an 81-year-old male with chronic atrial fibrillation on Eliquis 2. 5 mg twice a day along with 81 mg aspirin, presented to the hospital on 11/20/2017 with slurred speec h. Please refer to the history and physical for further details. The patient was admitted to the hospital with a diagnosis of acute CVA. MRI of the brain showed acut e infarction in the right MCA territory. The patient was evaluated by Cardiology and Neurology. He was placed on Lovenox during this hospital stay. Echocardiogram showed ejection fraction 55%-60%. H e had sinus pauses on the athletic monitor requiring pacemaker placement by electrophysiology, Dr. Gely diaz. Anticoagulation with Eliquis at 5 mg twice a day will be restarted tomorrow. He was advised to discontinue 81 mg aspirin. He will also continue clindamycin for post-implant prophylaxis. He appe ars stable for discharge. FINAL DIAGNOSES: 1. Acute cerebrovascular accident. 2. Chronic atrial fibrillation. 3. AV block requiring single-chamber pacemaker placement this admission. 4. Hypertension. 5. Obesity with a BMI 31.1. 6. Diabetes mellitus type 2. 7. Coronary artery disease, status post coronary artery bypass grafting. 8. Dyslipidemia. 9. History of bioprosthetic aortic valve replacement. 10. Code status: Full code. Total time coordinating the discharge of this patient was 33 minutes. The patient was extensively co unseled on fall precautions. Risk of anticoagulation was discussed with the patient and the family, they stated understanding.
[2017-11-25] MEDS ORDERED: Apixaban 5 MG TAB PO SCH (09:00)
--- NOTE | 2017-11-25 12:05 | EKG ---
Test Reason : Blood Pressure : / mmHG Vent. Rate : 057 BPM Atrial Rate : 250 BPM P-R Int : 000 ms QRS Dur : 124 ms QT Int : 456 ms P-R-T Axes : 000 -36 074 degrees QTc Int : 443 ms Poor data quality, interpretation may be adversely affected Atrial fibrillation with slow ventricular response Left axis deviation Left bundle branch block Abnormal ECG Confirmed by GREGG MCGEE, JULIO Silvestre ([id number]), newspaper photo editor CRYSTAL MICHAUD ([id number]) on 11/25/2017 12:04:45 PM Referred By: GREGG Confirmed By:JULIO ESCOBEDO MD
== END 2017-11-24 15:50 | disposition home or self-care (01) | DRG 42 ==
LOC: ERS 01:06 → 2SE 11:28
PROVIDERS: ADMIT Internal Medicine Infectious Disease; ATTEND Internal Medicine Infectious Disease
PROC: 0JH604Z Insertion of Pacemaker, Single Chamber into Chest Subcutaneous Tissue and Fascia, Open Approach (ICD-10-PCS; principal; 2017-11-23)
PROC: 02HK3JZ Insertion of Pacemaker Lead into Right Ventricle, Percutaneous Approach (ICD-10-PCS; 2017-11-23)
DX: I63.411 Cerebral infarction due to embolism of right middle cerebral artery (principal); I25.10 Atherosclerotic heart disease of native coronary artery without angina pectoris; E11.42 Type 2 diabetes mellitus with diabetic polyneuropathy; Z79.01 Long term (current) use of anticoagulants; Z88.1 Allergy status to other antibiotic agents; Z88.2 Allergy status to sulfonamides; Z88.8 Allergy status to other drugs, medicaments and biological substances; E78.5 Hyperlipidemia, unspecified; E11.22 Type 2 diabetes mellitus with diabetic chronic kidney disease; I12.9 Hypertensive chronic kidney disease with stage 1 through stage 4 chronic kidney disease, or unspecified chronic kidney disease; I48.2 Chronic atrial fibrillation; E66.9 Obesity, unspecified; Z68.31 Body mass index [BMI] 31.0-31.9, adult; I44.30 Unspecified atrioventricular block; R47.1 Dysarthria and anarthria; Z95.3 Presence of xenogenic heart valve; Z95.1 Presence of aortocoronary bypass graft; Z79.4 Long term (current) use of insulin; I44.7 Left bundle-branch block, unspecified; N18.3 Chronic kidney disease, stage 3 (moderate)
CPT/HCPCS: 33208; 36005; 36415; 36416; 70551; 71045; 75820; 80048; 80061; 82553; 84484; 85025; 85610; 85730; 93005; 93306; 96372; A4216; C1785; C1898; G8978-GP-CL; G8979-GP-CK; G8987-GO-CJ; G8988-GO-CJ; G8989-GO-CJ; G8996-GN-CJ; G8997-GN-CI; J1650; J3010; J3370; J3490

== ENCOUNTER 2019-08-01 16:21 | Outpatient (CLI) | payer MEDICARE ==
--- NOTE | 2019-08-01 16:40 | RAD ---
XR Abdomen 1 View/KUB HISTORY: Constipation COMPARISON: None. FINDINGS: There is air in nondilated loops of bowel. The bowel gas pattern is unremarkable. There are postop changes in the right upper quadrant. There are degenerative changes in the spine. Pelvic phleboliths are present.
== END 2019-08-01 16:22 | disposition home or self-care (01) ==
LOC: BICRAD 16:21
PROVIDERS: ATTEND Physician Assistant Medical
DX: K59.00 Constipation, unspecified (principal)
CPT/HCPCS: 74018

== ENCOUNTER 2019-08-15 14:57 | Emergency (ER) | payer MEDICARE ==
[~2019-08-15 14:57] MED LIST: Iopamidol 370 76% 100 ML VIAL ONE; Iopamidol 370 76% 50 ML VIAL FS ONE
[2019-08-15 16:08] LABS: #Eosinphils 0.1 thou/uL (0.0-0.7); #Lymphocytes 1.2 thou/uL (1.20-3.40); #Monocytes 0.6 thou/uL (0.11-0.59); #Neutrophils 4.2 thou/uL (1.40-6.50); %Basophils 0.6 % (0.0-1.0); %Eosinophils 1.9 % (0.0-10.0); %Lymphocytes 19.7 % (21.0-51.0); %Neutrophils 68.9 % (42.0-75.0); Hemoglobin 13.3 g/dL (14.0-18.0); Mean Corpuscular HGB CONC 35.2 g/dL (32.0-36.0); Mean Corpuscular Hemoglobin 33.9 pg (27.0-31.0); Mean Corpuscular Volume 96.3 fL (78.0-98.0); Mean Platelet Volume 7.9 fL (7.4-10.4); Platelet Count 167 thou/uL (130-400); RBC Distribution Width 11.9 % (11.5-14.5); Red Blood Cell (RBC) Count 3.91 mill/uL (4.70-6.10); White Blood Cell (WBC) Count 6.2 thou/uL (4.8-10.8)
[2019-08-15] MEDS ORDERED: Activated Charcoal/Sorbitol 25 GM/120 ML TUBE ONE (16:16)
[2019-08-15] MEDS ORDERED: Dicyclomine 20 MG TAB ONE (16:16)
[2019-08-15] MEDS ORDERED: Fleet Enema 133 ML BOT PR SCH (16:30)
[2019-08-15 16:35] LABS: ALT (SGPT) 16 U/L (8-55); AST (SGOT) 21 U/L (5-34); Albumin 3.7 g/dL (3.4-4.8); Alkaline Phosphatase 87 U/L (40-110); Anion Gap 12 mmol/L (10-20); BUN (Urea Nitrogen) 16 mg/dL (8.4-25.7); Bilirubin, Total 0.9 mg/dL (0.2-1.2); Calc. Creatinine Clearance 0 mL/min (70-130); Calcium 8.8 mg/dL (7.8-10.44); Carbon Dioxide 22 mmol/L (23-31); Chloride 109 mmol/L (98-107); Estimated GFR-MDRD 60; Globulin 2.9 g/dL (2.4-3.5); Glucose 184 mg/dL (83-110); Potassium 4.1 mmol/L (3.5-5.1); Protein, Total 6.6 g/dL (5.8-8.1); Sodium 139 mmol/L (136-145)
--- NOTE | 2019-08-15 19:44 | CT ---
CT ABDOMEN WITH CONTRAST CT PELVIS WITH CONTRAST: DATE: 08/15/2019 HISTORY: 83-year-old male with constipation COMPARISON: None TECHNIQUE: IV injection of iodinated contrast media: Isovue 370. Oral contrast media:Isovue FINDINGS: The sigmoid colon and rectum are distended with large volume of stool. The caliber of the rectum cros s-sectional dimensions are 7 x 7 cm. There is diffuse perirectal fat stranding representing edema, with thin dependent layer of small amount of edema fluid in the presacral space. A few diverticula at junction between the sigmoid and descending colon. No signs of diverticulitis. Moderate volume of stool in the rest of the colon. Normal appendix, spleen, liver, urinary bladder, and adrenals. No hydronephrosis. Difficult to distinguish renal calculi from excreted contrast material in the misty jenni. There may be calculi at left renal upper pole calyx. No abdominal aortic aneurysm. No small bowel dilation, ascites, pleural effusion, or pneumoperitoneum. There is an approximately 3 x 2 x 2.5 cm cyst with thin gabriel at the distal tip of the pancreatic landen l. No acute pancreatitis. No pancreatic ductal dilation. Atrophy of the pancreatic body and tail. IMPRESSION: 1) evidence for stercoral proctitis, and constipation. 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
== END 2019-08-15 22:20 | disposition home or self-care (01) ==
LOC: ERS 14:57
DX: K56.41 Fecal impaction (principal); I48.91 Unspecified atrial fibrillation; E11.9 Type 2 diabetes mellitus without complications; E78.5 Hyperlipidemia, unspecified; I10 Essential (primary) hypertension; Z79.899 Other long term (current) drug therapy
CPT/HCPCS: 36415; 74177; 80053; 85025; Q9967